=== PATIENT | male | born 1960 | race African-American/Black ===

== ENCOUNTER 2017-11-29 13:38 | Emergency (ER) | payer OTHER ==
[2017-11-29 13:55] VITALS: BP 125/93; PULSE 20; TEMP 99.2; BMI 29.0
--- NOTE | 2017-11-29 14:48 | PDOC ---
History of Present Illness - General History Source: Patient Exam Limitations: No Limitations - History of Present Illness Initial Comments: 11/29/17 15:18 Chief Complaint: Flu like symptoms History of Present Illness: The patient reports 2 days of productive cough with clear sputum, and nasal congestion. Also reports body aches, chills, and throat soreness. He reports feeling warm but denies taking his temperature at home. The patient denies taking anything for his symptoms. He denies any sick contacts. Reports trying to see his PCP yesterday but couldnt get appointment. Review of Systems: The patient denies any nausea, vomiting, diarrhea, shortness of breath, chest pain, or urinary symptoms. Social History: Patient is employed. He denies any drug, alcohol, or tobacco use. <Marci Ferraro - Last Filed: 11/29/17 15:18> <Kun Chavez - Last Filed: 11/29/17 15:41> - General Chief Complaint: Cold Symptoms Stated Complaint: COUGH Time Seen by Provider: 11/29/17 13:40 Past History <Marci Ferraro - Last Filed: 11/29/17 15:18> - Past Medical History COPD: No Diabetes: Yes HTN: Yes - Suicide/Smoking/Psychosocial Hx Smoking History: Current every day smoker Have you smoked in the past 12 months: Yes Number of Cigarettes Smoked Daily: 20 Information on smoking cessation initiated: Yes 'Breaking Loose' booklet given: 11/29/17 Hx Alcohol Use: No Drug/Substance Use Hx: No Substance Use Type: None <Kun Chavez - Last Filed: 11/29/17 15:41> - Past Medical History Allergies/Adverse Reactions: Allergies Allergy/AdvReac Type Severity Reaction Status Date / Time No Known Allergies Allergy Verified 11/29/17 13:39 Home Medications: Ambulatory Orders Amlodipine Besylate [Norvasc -] 5 mg PO DAILY 10/21/15 Metformin HCl 500 mg PO ASDIR 10/21/15 Guaifenesin AC [Robitussin-AC] 1 - 2 tsp PO Q4HWA PRN #120 ml MDD 8 11/29/17 Lisinopril 10 mg PO DAILY 11/29/17 Oseltamivir Phosphate [Tamiflu] 75 mg PO BID #10 capsule 11/29/17 Review of Systems - Review of Systems Able to Perform ROS?: Yes All Other Systems: Reviewed and Negative <Marci Ferraro - Last Filed: 11/29/17 15:18> *Physical Exam - Vital Signs Last Vital Signs Temp Pulse Resp BP Pulse Ox 99.2 F 20 L 20 125/93 97 11/29/17 13:39 11/29/17 13:39 11/29/17 13:39 11/29/17 13:39 11/29/17 13:39 <JasmineMarci - Last Filed: 11/29/17 15:18> - Vital Signs Last Vital Signs Temp Pulse Resp BP Pulse Ox 99.2 F 20 L 20 125/93 97 11/29/17 13:39 11/29/17 13:39 11/29/17 13:39 11/29/17 13:39 11/29/17 13:39 <Kun Chavez - Last Filed: 11/29/17 15:41> Medical Decision Making - Medical Decision Making 11/29/17 15:40 Chest x-ray: Clear Patient without tachypnea, dyspnea or other respiratory distress. Respiratory rate 16 and unlabored. O2 saturation 98-99% on room air Diabetic with multisystem complaints suggestive of influenza Plan: Tamiflu and symptomatic treatment, follow-up with worsening. Fully ambulatory and in no distress respiratory or otherwise upon discharge to follow- up as directed <Kun Chavez - Last Filed: 11/29/17 15:41> *DC/Admit/Observation/Transfer - Attestations Scribe Attestion: 11/29/17 15:19 Documentation prepared by Marci Ferraro, acting as biomedical repair technician for Kun Aquino MD. <Marci Ferraro - Last Filed: 11/29/17 15:18> - Discharge Dispostion Admit: No <Kun Chavez - Last Filed: 11/29/17 15:41> Diagnosis at time of Disposition: Influenza - Discharge Dispostion Disposition: HOME Condition at time of disposition: Stable - Prescriptions Prescriptions: Guaifenesin AC [Robitussin-AC] 1 - 2 tsp PO Q4HWA PRN #120 ml MDD 8 PRN Reason: Cough Oseltamivir Phosphate [Tamiflu] 75 mg PO BID #10 capsule - Patient Instructions Printed Discharge Instructions: DI for Viral Upper Respiratory Infection -- Adult Additional Instructions: Rest, lots of fluids, medication as prescribed. In addition, he is Tylenol, acetaminophen, ibuprofen, Advil, Motrin, or Aleve for fever and body aches as directed on the bottle. If there is high fever, chest pain, shortness of breath, or other difficulty breathing, return to the emergency room. Otherwise follow-up with primary physician in 2-3 days. - Post Discharge Activity Forms/Work/School Notes: Back to Work
== END 2017-11-29 15:22 | disposition home or self-care (01) ==
LOC: FER 13:38
DX: J11.1 Influenza due to unidentified influenza virus with other respiratory manifestations (principal)
CPT/HCPCS: 71046-TC; 99281-25

== ENCOUNTER 2018-03-15 13:21 | Emergency (ER) | payer OTHER ==
[2018-03-15 13:34] VITALS: BP 140/99; PULSE 90; TEMP 98.4; BMI 29.9
--- NOTE | 2018-03-15 13:41 | PDOC ---
History of Present Illness - General Chief Complaint: Headache Stated Complaint: HEADACHE Time Seen by Provider: 03/15/18 13:26 History Source: Patient Exam Limitations: No Limitations - History of Present Illness Initial Comments: 03/15/18 13:42 57y M hx of htn, dm2, hl, presents with headache. Pt notes that he has an intermittent headache for several months, but has been more freqeunt/persistent the past few days. Pt notes that the pain is worse in the R scalp and radaites down to his neck, pain is aching in nature. Pt took excedrine with improvement typically. He denies any nv, vision changes, numbness/tingling/waekness, cp, sob , neck stiffness, fever/chills, cough, abd pain, back pain, recent injuries/ falls. pt does note that he is recently retired, approx 1 month ago and has a poor sleep regiment - he will typically watch tv or do some other activity, sleep for a few hours and wake up and continue until he gets tired again and will take a short nap. Never more than 4 hrs. 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 pt has not taken any meds prior to presentation. PMD: Nicol Past History - Past Medical History Allergies/Adverse Reactions: Allergies Allergy/AdvReac Type Severity Reaction Status Date / Time No Known Allergies Allergy Verified 03/15/18 13:26 Home Medications: Ambulatory Orders Metformin HCl 500 mg PO ASDIR 10/21/15 Lisinopril 10 mg PO DAILY 11/29/17 Aspirin [Aspirin EC] 81 mg PO DAILY 03/15/18 Cholecalciferol (Vitamin D3) [Vitamin D3] 5,000 unit PO WEEKLY 03/15/18 Simvastatin 20 mg PO HS 03/15/18 COPD: No Diabetes: Yes (TYPE II) HTN: Yes Hypercholesterolemia: Yes Other medical history: HEADACHE - Suicide/Smoking/Psychosocial Hx Smoking History: Current every day smoker Have you smoked in the past 12 months: Yes Number of Cigarettes Smoked Daily: 10 Information on smoking cessation initiated: Yes 'Breaking Loose' booklet given: 11/29/17 Hx Alcohol Use: No Drug/Substance Use Hx: No Substance Use Type: None *Physical Exam - Vital Signs Last Vital Signs Temp Pulse Resp BP Pulse Ox 98.4 F 90 16 140/99 98 03/15/18 13:22 03/15/18 13:22 03/15/18 13:22 03/15/18 13:22 03/15/18 13:22 - Physical Exam Comments: 03/15/18 14:13 GENERAL: The patient is awake, alert, and fully oriented, Nontoxic - in no acute distress. HEAD: Normocephalic, atraumatic. EYES: extraocular movements intact, sclera anicteric, conjunctiva clear. ENT: Normal voice, Moist mucous membranes. NECK: Normal range of motion, supple LUNGS: Breath sounds equal, clear to auscultation bilaterally. No wheezes, no rhonchi, no rales. HEART: Regular rate and rhythm, normal S1 and S2 without murmur, rub or gallop. ABDOMEN: Soft, nontender, normoactive bowel sounds. No guarding, no rebound. . No CVA tenderness EXTREMITIES: Normal range of motion, no edema. No clubbing or cyanosis. No cords, erythema, or tenderness. PSYCH: Normal mood, normal affect. SKIN: Warm, Dry, normal turgor, NEURO: Mental status: The patient is oriented x3. Cranial nerves: Cranial nerves II through XII are intact Motor: The upper extremities are 5 over 5 in all muscle groups. The lower extremities are 5 over 5 in all muscle groups. Negative pronator drift Sensation: Sensation is intact to light touch throughout. romberg negative Cerebellar: Ilylit-blistd-lddp is normal in both upper extremities. Heel-knee- min is normal in both lower extremities. rapid alternating movements are normal. Gait: Normal. Heel and toe walking are normal. Medical Decision Making - Medical Decision Making 03/15/18 14:14 suspect tension headache, likely exacerbated by poor sleep hygene no red flags, neuro sx or findings will give motrin here will recmmend better sleep hygeine. will have pt fu with PMD for reassessment I discussed the physical exam findings, ancillary test results and final diagnoses with the patient. I answered all of the patient's questions. The patient was satisfied with the care received and felt comfortable with the discharge plan and treatment plan. The patient will call their primary care physician within 24 hours to arrange follow-up and will return to the Emergency Department with any new, persistent or worsening symptoms. *DC/Admit/Observation/Transfer Diagnosis at time of Disposition: Headache Qualifiers: Headache type: tension-type Headache chronicity pattern: chronic headache Intractability: not intractable Qualified Code(s): G44.229 - Chronic tension- type headache, not intractable - Discharge Dispostion Disposition: HOME Condition at time of disposition: Improved Admit: No - Referrals Referrals: Scottie Ba MD [Primary Care Provider] - - Patient Instructions Printed Discharge Instructions: DI for Hormonal and Tension Headaches Additional Instructions: Return to the emergency department immediately with ANY new, persistent or worsening symptoms including worsening headache, vision changes, numbness/ tingling/weakness, persistent nausea and vomiting or any other concerns. Make sure you are getting adaqute sleep and hydration. You MUST call and follow up with your doctor tomorrow for further evaluation of your symptoms. Your emergency department visit is not complete without a followup with your doctor for reevaluation. Results were discussed with you. Please make sure your doctor reviews the results of your emergency evaluation. Print Language: POLISH - Post Discharge Activity
[2018-03-15] MEDS ORDERED: IBUPROFEN 400 MG TABLET (FP) PO ONE ×2 (13:56→14:03)
== END 2018-03-15 14:19 | disposition home or self-care (01) ==
LOC: FER 13:21
DX: G44.229 Chronic tension-type headache, not intractable (principal); I10 Essential (primary) hypertension; E78.5 Hyperlipidemia, unspecified; E11.9 Type 2 diabetes mellitus without complications; F17.210 Nicotine dependence, cigarettes, uncomplicated; Z79.82 Long term (current) use of aspirin; Z79.84 Long term (current) use of oral hypoglycemic drugs
CPT/HCPCS: 99281-25

== ENCOUNTER 2019-04-23 20:03 | Emergency (ER) | payer OTHER | END 2019-04-23 21:05 | disposition home or self-care (01) | LOC: FER 20:03 ==

== ENCOUNTER 2019-09-17 02:21 | Emergency (ER) | payer OTHER ==
[2019-09-17 02:34] VITALS: BP 143/99; PULSE 83; TEMP 97.4; BMI 31.1
--- NOTE | 2019-09-17 02:35 | PDOC ---
History of Present Illness - General Chief Complaint: Rectal Bleed Stated Complaint: BLOODY STOOL Time Seen by Provider: 09/17/19 02:35 History Source: Patient Exam Limitations: No Limitations - History of Present Illness Initial Comments: This is a 59-year-old male who comes in complaining of 2 episodes of blood with bowel movements. Patient said they were not on painful. Patient denies any bleeding between bowel movements. Patient said bowel movements were well formed. Patient said there was blood on the tissue when he wiped himself after the bowel movement. Patient denies any other symptoms including there is no abdominal pain, no history of rectal bleed. Patient had a colonoscopy done approximately 6 months ago and was told it was normal. Allergies: as per nursing notes Past Medical History: none Social history: Lives with family. No smoking. No alcohol. No illicit drugs. Surgical history: None General: No fevers or chills, no weakness, no weight loss HEENT: No change in vision. No sore throat,. No ear pain CardioVascular: no chest discomfort. No shortness of breath Respiratory:No cough, or wheezing. Gastrointestinal: no nausea, vomiting, diarrhea or constipation, No rectal bleeding, blood in stool as per HPI Genitourinary: No dysuria, hematuria, or frequency Musculoskeletal: No joint or muscle pain or swelling Neurologic: No headache, vertigo, dizziness or loss of consciousness Psychiatric: nor depression Skin: No rashes or easy bruising Endocrine: no increased thirst or abnormal weight change Allergic: no skin or latex allergy All other systems reviewed and normal Exam: General: Well-nourished well-developed individual, no acute distress HEENT: Throat: Normal, tonsils normal, no erythema or exudate Neck: Supple, no meningeal signs, no lymphadenopathy Eyes::Pupils equal reactive and round, extraocular motion intact Cardiac: S1-S2 normal, regular rate and rhythm, no murmurs rubs or gallops Respiratory: Lungs clear to auscultation bilateral Abdomen: Soft, nondistended, normal bowel sounds, there is no tenderness on palpation diffusely Rectal: There is soft brown stool in the rectal vault no gross blood Extremities: Warm, dry, no cyanosis, clubbing, or edema Skin: No rashes Neuro: Alert and oriented x3, CN II - XII intact, nonfocal exam with normal strength, normal sensation, normal reflexes, normal gait, Psych: Normal mood and affect Assessment and plan: This is a 59-year-old male who came in complaining of 2 episodes of blood with stool. Patient had a guaiac negative stool on rectal exam. Patient otherwise had a normal exam reassured and discharged told to follow-up with his primary care doctor if he has any further bleeding. Past History - Past Medical History Allergies/Adverse Reactions: Allergies Allergy/AdvReac Type Severity Reaction Status Date / Time No Known Allergies Allergy Verified 03/15/18 13:26 Home Medications: Ambulatory Orders Lisinopril 10 mg PO DAILY 11/29/17 Aspirin [Aspirin EC] 81 mg PO DAILY 03/15/18 Glipizide [Glucotrol Xl] 2.5 mg PO DAILY 04/23/19 Albuterol Sulfate [Proair Hfa] 8.5 gm IH DAILY 09/17/19 Atorvastatin Ca [Lipitor] 40 mg PO HS 09/17/19 Diazepam [Valium] 5 mg PO DAILY 09/17/19 Ergocalciferol (Vitamin D2) [Vitamin D2] 1.25 mg PO DAILY 09/17/19 Finasteride 5 mg PO DAILY 09/17/19 Gabapentin 100 mg PO HS 09/17/19 Metoprolol Succinate 25 mg PO DAILY 09/17/19 Naproxen 500 mg PO DAILY 09/17/19 Sildenafil Citrate 100 mg PO DAILY 09/17/19 Asthma: Yes COPD: No Diabetes: Yes (TYPE II) HTN: Yes Hypercholesterolemia: Yes - Psycho Social/Smoking Cessation Hx Smoking History: Unknown if ever smoked Have you smoked in the past 12 months: No Number of Cigarettes Smoked Daily: 10 Information on smoking cessation initiated: No 'Breaking Loose' booklet given: 11/29/17 Hx Alcohol Use: No Drug/Substance Use Hx: No Substance Use Type: None *Physical Exam - Vital Signs Last Vital Signs Temp Pulse Resp BP Pulse Ox 97.4 F L 83 16 143/99 99 09/17/19 02:31 09/17/19 02:31 09/17/19 02:31 09/17/19 02:31 09/17/19 02:31 Discharge - Discharge Information Problems reviewed: Yes Clinical Impression/Diagnosis: Blood in stool Condition: Stable Disposition: HOME - Admission No - Follow up/Referral Referrals: Scottie Ba MD [Primary Care Provider] - - Patient Discharge Instructions Additional Instructions: There is no blood in your stool at this time however says it does appear you had 2 episodes of blood with your stool it is important that you follow-up with a GI doctor. Return to the emergency room if you have bright red blood without any bowel movements. Return to the emergency department immediately with ANY new, persistent or worsening symptoms. Continue any medications as previously prescribed by your physician. You should follow up with your primary doctor as soon as possible regarding today's emergency department visit. . Please make sure your doctor reviews the results of your emergency evaluation. Thank you for coming to the Emergency Department today for your care. It was a pleasure to see you today. Please note that your evaluation is INCOMPLETE until you follow-up with your doctor. - Post Discharge Activity
== END 2019-09-17 02:46 | disposition home or self-care (01) ==
LOC: FER 02:21
DX: K92.1 Melena (principal); I10 Essential (primary) hypertension; E78.00 Pure hypercholesterolemia, unspecified; E11.9 Type 2 diabetes mellitus without complications; J45.909 Unspecified asthma, uncomplicated; Z79.82 Long term (current) use of aspirin; Z79.84 Long term (current) use of oral hypoglycemic drugs
CPT/HCPCS: 36415; 82272; 99281-25

== ENCOUNTER 2021-12-27 07:22 | Emergency (ER) | payer OTHER ==
[2021-12-27] MEDS ORDERED: ALBUTEROL SO4 2.5/IPRATROPIUM 0.5 INH SOL 3 ML VIAL.NEB. NEB ONE (07:24)
[2021-12-27] MEDS ORDERED: predniSONE 20 MG TABLET (UD) PO ONE (07:24)
[2021-12-27 07:36] VITALS: BP 136/98; PULSE 97; TEMP 99.2; BMI 32.8
== END 2021-12-27 08:15 | disposition home or self-care (01) ==
LOC: FER 07:22
PROC: 3E0F7GC Introduction of Other Therapeutic Substance into Respiratory Tract, Via Natural or Artificial Opening (ICD-10-PCS; principal; 2021-12-27)
DX: R05.9 Cough, unspecified (principal)
CPT/HCPCS: 71046-TC-FY; 99283-25

== ENCOUNTER 2022-09-05 05:01 | Emergency (ER) | payer OTHER ==
[2022-09-05 05:12] VITALS: BP 125/84; PULSE 70; RESP 16; TEMP 98.5; BMI 32.8
[2022-09-05] MEDS ORDERED: ACETAMINOPHEN 325 MG TABLET (FP) PO ONE (05:27)
[2022-09-05] MEDS ORDERED: ACETAMINOPHEN 325 MG TABLET (FP) ONE (05:39)
== END 2022-09-05 05:40 | disposition home or self-care (01) ==
LOC: FER 05:01
DX: J02.9 Acute pharyngitis, unspecified (principal)
CPT/HCPCS: 0241U-QW; 87651; 99284-25

== ENCOUNTER 2022-11-10 20:25 | Emergency (ER) | payer OTHER ==
[2022-11-10 20:41] VITALS: BP 144/78; PULSE 80; RESP 18; TEMP 98.5; BMI 32.8
[2022-11-10] MEDS ORDERED: NEOMYCIN/POLYMYXN/HC OTIC SUSPENSION 10 ML BOTTLE ONE (21:02)
[2022-11-10] MEDS ORDERED: NEOMYCIN/POLYMYXN/HC OTIC SOLUTION 10 ML BOTTLE AD ONE (21:20)
[2022-11-11] MEDS ORDERED: NEOMYCIN/POLYMYXN/HC OTIC SOLUTION 10 ML BOTTLE AD ONE (21:01)
== END 2022-11-10 21:23 | disposition home or self-care (01) ==
LOC: FER 20:25
DX: H69.81 Other specified disorders of Eustachian tube, right ear (principal)
CPT/HCPCS: 99282-25

== ENCOUNTER 2023-01-22 10:34 | Emergency (ER) | payer OTHER ==
[2023-01-22 10:47] VITALS: BP 130/95; PULSE 72; RESP 16; TEMP 97.7; BMI 31.3
[2023-01-22] MEDS ORDERED: ACETAMINOPHEN 1000 MG/100 ML BAG IVPB ONE (11:07)
[2023-01-22] MEDS ORDERED: SODIUM CHLORIDE 1,000 ML IV STA (11:07)
[2023-01-22] MEDS ORDERED: METOCLOPRAMIDE HCL INJECTION 10 MG/2 ML VIAL IVPB ONE (11:07)
[2023-01-22] MEDS ORDERED: METOCLOPRAMIDE HCL INJECTION 10 MG/2 ML VIAL ONE (11:24)
[2023-01-22] MEDS ORDERED: ACETAMINOPHEN INJECTION 100 ML IVPB ONE (11:25)
[2023-01-22 12:15] LABS: ALBUMIN 4.2 g/dl (3.4-5.0); BILIRUBIN,TOTAL 1.6 mg/dl (0.2-1); CREATININE 1.4 mg/dl (0.55-1.3); TOT PROT 7.7 g/dl (6.4-8.2)
[2023-01-22 13:41] LABS: HEMATOCRIT 41.9 % (35.4-49); HEMOGLOBIN 15.2 G/dL (11.7-16.9); MCH 34.8 pg (25.7-33.7); MCHC 36.3 g/dl (32.0-35.9); MEAN CELL VOLUME 95.7 fl (80-96); MEAN PLT VOLUME 8.5 fl (7.5-11.1); PLATELET COUNT 221.9 10^3/uL (134-434); RBC 4.38 10^6/uL (4.00-5.60); WHITE BLOOD COUNT 9.4 10^3/uL (4.0-10.8)
[2023-01-22 17:04] LABS: PLATELET ESTIMATE ADEQUATE
== END 2023-01-22 14:06 | disposition home or self-care (01) ==
LOC: FER 10:34
PROC: 3E033NZ Introduction of Analgesics, Hypnotics, Sedatives into Peripheral Vein, Percutaneous Approach (ICD-10-PCS; principal; 2023-01-22)
PROC: 3E033GC Introduction of Other Therapeutic Substance into Peripheral Vein, Percutaneous Approach (ICD-10-PCS; 2023-01-22)
PROC: 3E0337Z Introduction of Electrolytic and Water Balance Substance into Peripheral Vein, Percutaneous Approach (ICD-10-PCS; 2023-01-22)
DX: R51.9 Headache, unspecified (principal)
CPT/HCPCS: 0241U-QW; 36415; 70450-TC; 80053; 81003; 85027; 99284-25

== ENCOUNTER 2023-02-24 06:09 | Emergency (ER) | payer OTHER ==
[2023-02-24 06:18] VITALS: RESP 16; BMI 32.3
[2023-02-24 06:27] VITALS: BP 146/97; PULSE 106; TEMP 100.7
[2023-02-24] MEDS ORDERED: ACETAMINOPHEN 325 MG TABLET (FP) PO ONE (07:24)
[2023-02-24] MEDS ORDERED: ACETAMINOPHEN 325 MG TABLET (FP) ONE (07:30)
[2023-02-24 09:41] LABS: THROAT:GRP A STREP DETECTED (NOTDETECTED)
== END 2023-02-24 08:24 | disposition home or self-care (01) ==
LOC: FER 06:09
DX: R05.1 Acute cough (principal); R09.81 Nasal congestion; J02.0 Streptococcal pharyngitis; Z20.822 Contact with and (suspected) exposure to COVID-19
CPT/HCPCS: 0241U-QW; 71046-TC-FY; 87651; 99284-25

== ENCOUNTER 2025-06-26 13:53 | Emergency (ER) | payer OTHER ==
[2025-06-26 14:05] VITALS: RESP 18; TEMP 98.6; BMI 32.4
[2025-06-26] MEDS ORDERED: IPRATROPIUM BR 0.02% 0.5 MG/2.5 ML VIAL.NEB. NEB ONE (15:03)
[2025-06-26] MEDS: IPRATROPIUM BR 0.02% 0.5 MG/2.5 ML VIAL.NEB. NEB ONE (15:06)
[2025-06-26 15:15] LABS: ABSOLUTE IMMATURE GRANULOCYTES 0.02 x10^3/uL (0.0-0.031); BASOPHILS # 0.05 x10^3/uL (0.01-0.08); EOSINOPHIL % 2.9 % (0.8-7.0); EOSINOPHILS # 0.29 x10^3/uL (0.04-0.54); MCHC 33.4 g/dl (32.3-36.5); MEAN CELL VOLUME 95.3 fl (79.0-92.2); MEAN PLT VOLUME 9.6 fl (9.4-12.4); MONOCYTE # 0.71 x10^3/uL (0.30-0.82); MONOCYTE % 7.2 % (5.3-12.2); RDW 11.3 % (12.2-16.4)
[2025-06-26 15:38] LABS: ALK PHOS 102.0 U/L (45-117); CO2 22.0 mmol/L (21-32); CREATININE 1.2 mg/dl (0.6-1.3); GLUCOSE,RANDOM 166.0 mg/dl (74-106); SGOT/AST 21.0 U/L (15-37); SGPT/ALT 26.0 U/L (7-52); TOT PROT 7.2 g/dl (6.4-8.2)
[2025-06-26 16:37] VITALS: BP 135/89; PULSE 78
[2025-06-26 16:38] LABS: N-TERMINAL BNP 32.2 pg/mL (0-299.9)
[2025-06-26 18:37] LABS: HCV DIAGNOSTIC IN-HOUSE W/RFLX NON-REACTIVE (NONREACTIVE); HIV INTERPRETATION NEGATIVE (NEGATIVE)
== END 2025-06-26 17:36 | disposition home or self-care (01) ==
LOC: FER 13:53
PROC: 3E0F7GC Introduction of Other Therapeutic Substance into Respiratory Tract, Via Natural or Artificial Opening (ICD-10-PCS; principal; 2025-06-26)
DX: R05.9 Cough, unspecified (principal); J39.2 Other diseases of pharynx; R09.81 Nasal congestion; R94.31 Abnormal electrocardiogram [ECG] [EKG]
CPT/HCPCS: 36415; 71046-TC-FY; 80053; 83880; 84484; 85025; 86803; 87389; 87637-QW; 93005; 99285-25